=== PATIENT | female | born 1985 | race Caucasian/White ===

== ENCOUNTER 2019-07-01 11:54 | Emergency (ER) | payer OTHER ==
[~2019-07-01] VITALS: Ht 149.9 cm; Wt 70.3 kg
--- NOTE | 2019-07-01 12:07 | NUR ---
ABDOMINAL PAIN X 4 DAYS. RADIATES TO BACK. STATES SOMETIMES FEELS HARD/BLOATED. VOMITED YESTERDAY. DENIES NAUSEA, CHANGES IN BOWEL/BLADDER. NO ACUTE DISTRESS NOTED. NO OTHER COMPLAINTS AT THIS TIME. ON MONITOR, MADE COMFORTABLE, AND READY FOR EVAL.
[2019-07-01] MEDS ORDERED: FAMOTIDINE (20 MG) 20 MG TABLET PO ONE (12:30)
[2019-07-01] MEDS ORDERED: LIDOCAINE VISCOUS 2% UD 15 ML UDC MM ONE (12:30)
[2019-07-01] MEDS ORDERED: MAG HYDROX/AL HYDROX/SIMETH 30 ML UDC PO ONE (12:30)
[2019-07-01] MEDS ORDERED: MAG HYDROX/AL HYDROX/SIMETH 30 ML UDC ONE (12:32)
[2019-07-01] MEDS ORDERED: FAMOTIDINE (20 MG) 20 MG TABLET ONE (12:32)
[2019-07-01] MEDS ORDERED: LIDOCAINE VISCOUS 2% UD 15 ML UDC ONE (12:32)
[2019-07-01 12:33] LABS: APPEARANCE,URINE Clear (CLEAR); BILIRUBIN,URINE Negative (NEGATIVE); BLOOD, URINE Trace-intact Ery/uL (NEGATIVE); COLOR,URINE Yellow (YELLOW); KETONES,URINE Negative (NEGATIVE); LEUKOCYTE ESTERASE ,URINE Negative (NEGATIVE); NITRITE, URINE Negative (NEGATIVE); PH,URINE 6.5 (5.0-8.0); PROTEIN,URINE Negative (NEGATIVE); UGLUCOSE Negative (NEGATIVE); UROBILINOGEN,URINE 0.2 EU/dL (0.2)
[2019-07-01 12:36] LABS: RBC,URINE 0-2 /HPF (0-2); WBC,URINE 0-2 /HPF (0-3)
[2019-07-01 12:37] LABS: BACTERIA,URINE Few /HPF (None Seen); SQUAMOUS EPITHELIAL CELL,UR Few /HPF (None Seen)
[2019-07-01 12:38] LABS: BASOPHILS % (AUTO) 0.3 % (0.0-2.0); EOSINOPHILS % (AUTO) 0.2 % (0.0-6.0); HEMATOCRIT 38 % (33-45); HEMOGLOBIN 12.4 g/dL (11.5-14.8); LYMPHOCYTES # (AUTO) 2.1 /CMM (0.8-4.8); LYMPHOCYTES % (AUTO) 15.3 % (20.0-44.0); MEAN CORPUSCULAR HGB CONC 33 g/dl (31.0-36.0); MEAN CORPUSCULAR VOLUME 79 fL (82-100); MONOCYTES # (AUTO) 0.8 /CMM (0.1-1.30); MONOCYTES % (AUTO) 5.8 % (2.0-12.0); NEUTROPHILS # (AUTO) 10.8 /CMM (1.8-8.9); NEUTROPHILS % (AUTO) 78.4 % (43.0-81.0); PLATELET COUNT (AUTO) 304 /CMM (150-450); RED BLOOD CELL COUNT(AUTO) 4.77 MIL/uL (4.0-5.2); WHITE BLOOD COUNT (AUTO) 13.7 K/uL (4.3-11.0)
[2019-07-01 12:44] LABS: CALCIUM, SERUM 8.9 mg/dL (8.5-10.1); CREATININE 0.5 mg/dL (0.6-1.3); POTASSIUM 3.8 mmol/L (3.5-5.1)
[2019-07-01 12:50] LABS: ALBUMIN 3.5 g/dL (3.4-5.0); BILIRUBIN,DIRECT 0.1 mg/dL (0.0-0.2); BILIRUBIN,TOTAL 0.4 mg/dL (0.2-1.0); TOTAL PROTEIN, SERUM 7.3 g/dL (6.4-8.2)
--- NOTE | 2019-07-01 12:50 | NUR ---
DOLL WIGS HACKLER AT BEDSIDE
--- NOTE | 2019-07-01 13:39 | NUR ---
Patient discharged to home in stable condition. Written and verbal after care instructions given. Patient verbalizes understanding of instruction.
[2019-07-01 13:40] VITALS: BP 125/79
== END 2019-07-01 13:35 | disposition home or self-care (01) ==
LOC: ER 11:54
DX: K29.70 Gastritis, unspecified, without bleeding (principal); G43.909 Migraine, unspecified, not intractable, without status migrainosus; F17.200 Nicotine dependence, unspecified, uncomplicated; Z88.1 Allergy status to other antibiotic agents
CPT/HCPCS: 36415; 76705-TC; 80048-TC; 80076-TC; 81000-TC; 83690-TC; 84703-TC; 85025-TC